=== PATIENT | male | born 1990 | race Hispanic/Latino ===

== ENCOUNTER 2021-08-25 12:07 | Emergency (ER) | payer SELFPAY ==
[2021-08-25 12:30] VITALS: BP 132/71; PULSE 57; RESP 14; TEMP 36.1; O2SAT 100; BMI 31.9
[2021-08-25 14:21] LABS: Urine N gonorrhoeae NOT DETECTED
[2021-08-25 14:22] LABS: Urine Chlamydia NOT DETECTED
== END 2021-08-25 14:12 | disposition left against medical advice (07) ==
PROVIDERS: Emergency Provider Emergency Medicine
DX: R30.9 Painful micturition, unspecified (principal)
CPT/HCPCS: 81003; 87491; 87591; 99281

== ENCOUNTER 2021-08-26 10:50 | Emergency (ER) | payer SELFPAY ==
[2021-08-26 11:08] VITALS: BP 117/58; PULSE 60; RESP 17; TEMP 36.7; O2SAT 98; BMI 31.5
[2021-08-26 11:15] VITALS: PULSE 58; O2SAT 100
[2021-08-26 11:30] VITALS: PULSE 59; O2SAT 99
--- NOTE | 2021-08-26 11:39 | ED.GENADULT ---
HPI - General Adult General Chief complaint: Urogenital-Male Stated complaint: stinging urination; was here yesterday Time Seen by Provider: 08/26/21 11:11 Source: patient Mode of arrival: Ambulatory Limitations: no limitations History of Present Illness HPI narrative: Patient is a 30-year-old male. He was actually here in the emergency department yesterday. Provide urine samples however left without being seen. He is here because he started having stinging with urination a couple days ago. He also noticed a white lump when he pulled back the foreskin on his penis. He was concerned about sexually transmitted infection. He left yesterday because of the wait times. He returns today to continue with his evaluation. He states that since the onset of his symptoms things have actually greatly improved. He is no longer having any other dysuria. The white spot these concerned about has actually improved/resolved. No fevers. No rashes. No recent travel. Related Data Allergies Allergy/AdvReac Type Severity Reaction Status Date / Time Penicillins Allergy Verified 08/25/21 12:30 Review of Systems Constitutional Constitutional: Denies fever(s) Gastrointestinal Gastrointestinal: Reports as per HPI and Reports system reviewed and no additional complaints, except as documented Genitourinary Genitourinary: Reports system reviewed and no additional complaints, except as documented and Reports as per HPI Integumentary/Breasts Skin/Breast: Reports system reviewed and no additional complaints, except as documented Hematologic/Lymphatic On Anticoagulants: No Patient History Medical History Healthy adult Social History Smoking Status: Unknown if ever smoked Smoking Status: Unknown if ever smoked alcohol intake frequency: holidays/special occasions only Substance Use Type: does not use Exam Initial Vital Signs Initial Vital Signs: Vital Signs Temperature 98.0 F 08/26/21 11:08 Pulse Rate 60 08/26/21 11:08 Respiratory Rate 17 08/26/21 11:08 Blood Pressure 117/58 L 08/26/21 11:08 Pulse Oximetry 98 08/26/21 11:08 HENMT Head: normal to inspection and normocephalic Resp Effort & Inspection: normal respiratory effort Cardio Rate: regular rate External: uncircumcised Penis: no condylomata, not erythematous, no pustules, no swelling and no vesicles Meatus: meatus normal Skin General: no rashes or lesions noted Neuro General: patient alert, patient awake, patient oriented x3 and moves all extremities Extrem General: normal to inspection and capillary refill normal Course Vital Signs Vital signs: Vital Signs - 8 hr 08/26/21 11:08 08/26/21 11:15 08/26/21 11:30 Temperature 98.0 F Pulse Rate 60 58 L 59 L Respiratory Rate 17 Blood Pressure 117/58 L Pulse Oximetry 98 100 99 08/26/21 12:00 Temperature Pulse Rate 58 L Respiratory Rate Blood Pressure 117/58 L Pulse Oximetry 100 Medical Decision Making MDM Narrative Medical decision making narrative: I reviewed the patient's labs that were performed yesterday shows a unremarkable point of care urinalysis. Also has a GC and chlamydia that are negative. His exam today is not consistent with condyloma, HSV the, syphilis. I did discuss this with him. No indication for antibiotics especially given the fact that his symptoms are improving. Reassured the patient that his labs were negative and I did inform him that if he started to develop symptoms consistent with other STDs that he needs to return to the emergency department for further evaluation. He expressed understanding and agreement. Discharge Plan Departure Patient Disposition: Home Clinical Impression: Dysuria Instructions: DI for Dysuria -- Adult Activity Restrictions/Additional Instructions: Your exam and workup today to include the labs that were performed yesterday do not show any signs of an infection. I am happy that your symptoms are improving. Contact your primary doctor for a follow-up. There is no indication to do any antibiotics. Return to the emergency department for any new symptoms.
[2021-08-26 12:00] VITALS: BP 117/58; PULSE 58; O2SAT 100
--- NOTE | 2021-08-26 12:13 | PC.NURSE ---
Seen and evaluated by provider
== END 2021-08-26 12:14 | disposition home or self-care (01) ==
PROVIDERS: Emergency Provider Emergency Medicine
DX: R30.0 Dysuria (principal)
CPT/HCPCS: 99281